=== PATIENT | male | born 2005 | race Caucasian/White ===

== ENCOUNTER 2024-06-19 18:08 | Inpatient (IN) | payer OTHER ==
[2024-06-19 19:04] LABS: HEMATOCRIT 47.9 % (42.0-52.0); HEMOGLOBIN 16.9 g/dl (13.5-17.5); MEAN CORPUSCULAR HEMOGLOBIN 30.3 pg (27.0-33.0); MEAN CORPUSCULAR HGB CONC 35.3 g/dl (32.0-36.5); MEAN CORPUSCULAR VOLUME 85.8 fl (80.0-96.0); PLATELET COUNT, AUTOMATED 234 10^3/uL (150-450); RED BLOOD COUNT 5.58 10^6/uL (4.30-6.10); WHITE BLOOD COUNT 8.6 10^3/uL (4.0-10.0)
[2024-06-19 19:27] LABS: ETHYL ALCOHOL (ETHANOL) 0.004 % (0.000-0.010); SALICYLATE LEVEL < 3.0 MG/DL (<30)
[2024-06-19 19:28] LABS: ALKALINE PHOSPHATASE 89 U/L (40-129); ALT/SGPT 29 U/L (7.0-40); AST/SGOT 18 U/L (<34); BILIRUBIN,DIRECT 0.2 MG/DL (<0.4); BILIRUBIN,TOTAL 0.7 MG/DL (0.3-1.2); BLOOD UREA NITROGEN 12 MG/DL (9-23); CARBON DIOXIDE LEVEL 25 MMOL/L (20-31); CHLORIDE LEVEL 102 MMOL/L (98-107); CREATININE FOR GFR 0.78 MG/DL (0.70-1.30); GLUCOSE, FASTING 121 MG/DL (60-100); POTASSIUM SERUM 3.7 MMOL/L (3.5-5.1); SODIUM LEVEL 140 MMOL/L (136-145); TOTAL PROTEIN 7.4 G/DL (5.7-8.2)
[2024-06-19 19:31] LABS: THYROID STIMULATING HORMONE 1.454 uIU/ML (0.48-4.17)
[2024-06-19 19:38] LABS: METHADONE URINE NEGATIVE (NEGATIVE); OPIATES URINE NEGATIVE (NEGATIVE)
[2024-06-19 19:39] LABS: AMPHETAMINES LEVEL URINE NEGATIVE (NEGATIVE); BARBITURATES URINE NEGATIVE (NEGATIVE); BENZODIAZEPINES URINE NEGATIVE (NEGATIVE); CANNABINOIDS URINE NEGATIVE (NEGATIVE); COCAINE METABOLITE URINE NEGATIVE (NEGATIVE); PHENCYCLIDINE URINE NEGATIVE (NEGATIVE)
[2024-06-19] MEDS ORDERED: ACETAMINOPHEN 325 MG TAB PO PRN (21:15)
[2024-06-19] MEDS ORDERED: MOM 30ML SUSPENSION UDC PO PRN (21:15)
[2024-06-19] MEDS ORDERED: traZODone 50 MG TAB PO PRN (21:15)
[2024-06-19] MEDS ORDERED: IBUPROFEN 400MG TAB PO PRN (21:15)
[2024-06-19] MEDS ORDERED: MAALOX 30 ML SUSP *UDC PO PRN (21:15)
[2024-06-19 23:15] VITALS: BP 131/75; TEMP 97.7; O2SAT 99
[2024-06-20] MEDS: diphenhydrAMINE 25MG CAP PO PRN (00:35)
[2024-06-20 06:27] VITALS: BP 126/59; TEMP 97; O2SAT 99
[2024-06-20] MEDS ORDERED: NICOTINE 14 MG/24 HR TRANSDERMAL TD SCH (09:00)
[2024-06-20] MEDS ORDERED: FLUO-290 PO (10:46)
[2024-06-20] MEDS ORDERED: HOME MED LIST COMPLETE! XX SCH (10:50)
[2024-06-20 17:30] VITALS: BP 135/89; TEMP 97.4; O2SAT 100
[2024-06-21 06:28] VITALS: BP 115/58; TEMP 97.8; O2SAT 100
[2024-06-21] MEDS: FLUoxetine 20MG CAP PO SCH (09:13)
[2024-06-21 16:11] VITALS: BP 127/74; TEMP 98.4; O2SAT 98
[2024-06-22 06:29] VITALS: BP 125/75; TEMP 97; O2SAT 99
[2024-06-22] MEDS ORDERED: FLUO-96 PO (09:25)
[2024-06-22] MEDS ORDERED: FLUO-365 PO (09:40)
== END 2024-06-22 13:23 | disposition home or self-care (01) | DRG 881 ==
LOC: M ED 18:08 → M ED INP 21:13 → M PSY 22:35
PROVIDERS: ADMIT Psychiatry & Neurology Neurology; ATTEND Psychiatry & Neurology Neurology
DX: F32.A Depression, unspecified (principal); R45.851 Suicidal ideations; F84.0 Autistic disorder; Z59.00 Homelessness unspecified; F43.10 Post-traumatic stress disorder, unspecified; F60.3 Borderline personality disorder; Z91.148 Patient's other noncompliance with medication regimen for other reason

== ENCOUNTER 2024-07-12 19:58 | Inpatient (IN) | payer OTHER ==
[~2024-07-12] VITALS: Ht 177.8 cm; Wt 110.0 kg
[~2024-07-12 19:58] MED LIST: FLUO-290 PO; FLUO-365 PO; FLUO-96 PO
[2024-07-12 20:55] LABS: HEMATOCRIT 46.2 % (42.0-52.0); HEMOGLOBIN 16.6 g/dl (13.5-17.5); MEAN CORPUSCULAR HEMOGLOBIN 30.6 pg (27.0-33.0); MEAN CORPUSCULAR HGB CONC 35.9 g/dl (32.0-36.5); MEAN CORPUSCULAR VOLUME 85.1 fl (80.0-96.0); PLATELET COUNT, AUTOMATED 257 10^3/uL (150-450); RED BLOOD COUNT 5.43 10^6/uL (4.30-6.10); WHITE BLOOD COUNT 9.6 10^3/uL (4.0-10.0)
[2024-07-12 21:22] LABS: ETHYL ALCOHOL (ETHANOL) 0.004 % (0.000-0.010)
[2024-07-12 21:24] LABS: SALICYLATE LEVEL < 3.0 MG/DL (<30)
[2024-07-12 21:27] LABS: THYROID STIMULATING HORMONE 1.356 uIU/ML (0.48-4.17)
[2024-07-12 22:09] LABS: ALBUMIN 4.4 G/DL (3.2-5.2); ALKALINE PHOSPHATASE 88 U/L (40-129); ALT/SGPT 26 U/L (7.0-40); AST/SGOT 18 U/L (<34); BILIRUBIN,DIRECT 0.3 MG/DL (<0.4); BLOOD UREA NITROGEN 12 MG/DL (9-23); CALCIUM LEVEL 9.6 MG/DL (8.5-10.1); CARBON DIOXIDE LEVEL 23 MMOL/L (20-31); CHLORIDE LEVEL 106 MMOL/L (98-107); CREATININE FOR GFR 0.88 MG/DL (0.70-1.30); GLUCOSE, FASTING 132 MG/DL (60-100); POTASSIUM SERUM 3.7 MMOL/L (3.5-5.1); SODIUM LEVEL 142 MMOL/L (136-145); TOTAL PROTEIN 7.5 G/DL (5.7-8.2)
[2024-07-12 23:37] LABS: AMPHETAMINES LEVEL URINE NEGATIVE (NEGATIVE); BARBITURATES URINE NEGATIVE (NEGATIVE); BENZODIAZEPINES URINE NEGATIVE (NEGATIVE); CANNABINOIDS URINE NEGATIVE (NEGATIVE); COCAINE METABOLITE URINE NEGATIVE (NEGATIVE); METHADONE URINE NEGATIVE (NEGATIVE); OPIATES URINE NEGATIVE (NEGATIVE); PHENCYCLIDINE URINE NEGATIVE (NEGATIVE)
[2024-07-13] MEDS ORDERED: MAALOX 30 ML SUSP *UDC PO PRN (01:45)
[2024-07-13] MEDS ORDERED: traZODone 50 MG TAB PO PRN (01:45)
[2024-07-13] MEDS ORDERED: MOM 30ML SUSPENSION UDC PO PRN (01:45)
[2024-07-13] MEDS ORDERED: IBUPROFEN 400MG TAB PO PRN (01:45)
[2024-07-13] MEDS ORDERED: ACETAMINOPHEN 325 MG TAB PO PRN (01:45)
[2024-07-13] MEDS ORDERED: OLANZapine 5 MG TAB PO PRN (01:45)
[2024-07-13 03:33] VITALS: BP 139/98; TEMP 97.5; O2SAT 99
[2024-07-13] MEDS: NICOTINE 14 MG/24 HR TRANSDERMAL TD SCH (09:00)
[2024-07-13] MEDS ORDERED: HOME MED LIST COMPLETE! XX SCH (10:05)
[2024-07-13] MEDS: FLUoxetine 20MG CAP PO SCH (12:30)
[2024-07-13 16:34] VITALS: BP 142/77; TEMP 98.3; O2SAT 99
[2024-07-14 06:51] VITALS: BP 127/70; TEMP 97.9; O2SAT 98
[2024-07-14] MEDS: FLUoxetine 20MG CAP PO SCH (09:54)
[2024-07-14 17:12] VITALS: BP 128/75; TEMP 98.2; O2SAT 97
[2024-07-15 06:34] VITALS: BP 117/71; TEMP 97.6; O2SAT 99
[2024-07-15 15:20] VITALS: BP 127/72; TEMP 97.6; O2SAT 96
[2024-07-16 15:39] VITALS: BP 130/76; TEMP 98; O2SAT 98
[2024-07-16] MEDS: diphenhydrAMINE 25MG CAP PO PRN (20:36)
[2024-07-17 15:21] VITALS: BP 135/74; TEMP 98; O2SAT 97
[2024-07-18] MEDS: MECLIZINE 25 MG TABLET PO PRN (06:48)
[2024-07-18 06:50] VITALS: BP 146/81; TEMP 97.4; O2SAT 96
[2024-07-18] MEDS ORDERED: FLUO-365 PO (09:48)
== END 2024-07-18 14:08 | disposition home or self-care (01) | DRG 881 ==
LOC: M ED 19:58 → M ED INP 07-13 01:45 → M PSY 07-13 03:28
PROVIDERS: ADMIT Psychiatry & Neurology Neurology; ATTEND Psychiatry & Neurology Psychiatry
DX: F32.A Depression, unspecified (principal); F43.10 Post-traumatic stress disorder, unspecified; F60.3 Borderline personality disorder; F64.0 Transsexualism; Z91.148 Patient's other noncompliance with medication regimen for other reason; F12.90 Cannabis use, unspecified, uncomplicated; H81.399 Other peripheral vertigo, unspecified ear